=== PATIENT | female | born 1985 | race Caucasian/White ===

== ENCOUNTER 2017-09-16 09:34 | Emergency (ER) | payer BC, OTHER ==
[2017-09-16 09:47] VITALS: BP 108/71; PULSE 73; RESP 18; TEMP 98.8; O2SAT 100
[2017-09-16] MEDS ORDERED: Tdap Vaccine 0.5 ml Vial (10-64 yrs) IM ONE ×2 (09:55→10:04)
--- NOTE | 2017-09-16 10:05 | C.PDOC ---
History Of Present Illness 32 y/o female presents to ED for evaluation of laceration sustained to volar surface of left index finger with knife while cutting cass this morning. Patient has a 1cm horizontal laceration to left index finger and denies other injury or any other complaints at this time.Tetanus not UTD. Time Seen by Provider: 09/16/17 09:47 Chief Complaint (Nursing): Abnormal Skin Integrity History Per: Patient History/Exam Limitations: no limitations Onset/Duration Of Symptoms: Hrs Current Symptoms Are (Timing): Still Present Past Medical History Reviewed: Historical Data, Nursing Documentation, Vital Signs Vital Signs: Last Vital Signs Temp 98.8 F 09/16/17 09:44 Pulse 73 09/16/17 09:44 Resp 18 09/16/17 10:16 BP 108/71 09/16/17 09:44 Pulse Ox 100 09/16/17 10:05 - Medical History PMH: No Chronic Diseases Surgical History: No Surg Hx Family History: States: No Known Family Hx - Social History Hx Alcohol Use: Yes Hx Substance Use: No Review Of Systems Musculoskeletal: Positive for: Hand Pain Skin: Negative for: Rash, Bruising Physical Exam - Physical Exam Appears: Non-toxic, No Acute Distress Skin: Warm, Dry, Other (1cm laceration below PIP of left index finger) Head: Atraumatic, Normacephalic Eye(s): bilateral: Normal Inspection Oral Mucosa: Moist Extremity: Normal ROM, Capillary Refill (<2 seconds) Extremity: Bilateral: Normal ROM Pulses: Left Radial: Normal Neurological/Psych: Oriented x3, Normal Motor, Normal Sensation ED Course And Treatment O2 Sat by Pulse Oximetry: 100 Laceration - Laceration Repair left index finger Wound Length (In cm): 1 Description Of Wound: Linear Wound Cleansed With: Betadine, Sterile Saline Wound Examination: Irrigated With Saline Wound Closure: Steri Strips, Skin Glue Wound Complexity: Simple Medical Decision Making Medical Decision Making: Plan: Lac repair and Finger Splint, Tetanus vaccine Progress: Patient tolerated lac repair well and agrees with plan of discharge. Disposition - Disposition Disposition: HOME/ ROUTINE Disposition Time: 10:03 Condition: STABLE Instructions: Laceration Repair With Glue (DC) Forms: [facility] ([place]), General Discharge Instructions - POA Present On Arrival: None - Clinical Impression Clinical Impression: Laceration of finger - Scribe Statement The provider has reviewed the documentation as recorded by the Arlet Oropeza All medical record entries made by the Arlet were at my direction and personally dictated by me. I have reviewed the chart and agree that the record accurately reflects my personal performance of the history, physical exam, medical decision making, and the department course for this patient. I have also personally directed, reviewed, and agree with the discharge instructions and disposition.
== END 2017-09-16 10:31 | disposition home or self-care (01) ==
LOC: C.ER 09:34
DX: S61.211A Laceration without foreign body of left index finger without damage to nail, initial encounter (principal); W26.0XXA Contact with knife, initial encounter